=== PATIENT | female | born 1965 | race Caucasian/White ===

== ENCOUNTER 2021-10-02 05:00 | Emergency (ER) | payer OTHER ==
[2021-10-02] MEDS ORDERED: Sodium Chloride 0.9% 1,000 ML IV SCH (05:45)
[2021-10-02] MEDS ORDERED: Ondansetron 4 MG/2 ML SDV IVPUSH ONE (06:27)
[2021-10-02] MEDS ORDERED: cefTRIAXone 2 GM Vial IVPUSH ONE (06:38)
[2021-10-02] MEDS ORDERED: cefTRIAXone 1 GM Vial IVPUSH ONE (06:47)
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
[2021-10-02] MEDS ORDERED: Iopamidol 755 Mg/ML 75 ML Bottle IV ONE (07:06)
--- NOTE | 2021-10-02 09:20 | PCM.SN.2 ---
- Free Text/Narrative Note: Patient was handed to me pending CT abd/pelvis result. See Dr Vega note for details of HPI A/P 1.UTI 2.Acute cystitis 3.Fatty liver See discharge instructions for details of discharge planning Time Documentation
== END 2021-10-02 09:05 | disposition home or self-care (01) ==
LOC: FB.ED 05:00
DX: R82.81 Pyuria (principal); R82.71 Bacteriuria; D75.89 Other specified diseases of blood and blood-forming organs; R79.89 Other specified abnormal findings of blood chemistry; Z87.891 Personal history of nicotine dependence; Z20.822 Contact with and (suspected) exposure to COVID-19
CPT/HCPCS: 36415; 72040; 74178; 80053; 81001; 83690; 85025; 86140; 87086; 87088; 87186; 87635; 96374; 96375; 99284; J0696; J2405; J7030; Q9967; U0002

== ENCOUNTER 2021-10-28 06:13 | Emergency (ER) | payer OTHER ==
[2021-10-28] MEDS ORDERED: Sodium Chloride 0.9% 10 ML Syringe FLUSH PRN (06:27)
[2021-10-28] MEDS: Ondansetron 4 MG/2 ML SDV IVPUSH ONE (06:38)
[2021-10-28] MEDS: Sodium Chloride 0.9% 1,000 ML IV ONE (06:38)
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
[2021-10-28] MEDS: Prochlorperazine 10 MG in Sodium Chloride 0.9% 50 ML IV ONE (07:25)
== END 2021-10-28 08:10 | disposition home or self-care (01) ==
LOC: FB.ED 06:13
DX: K52.9 Noninfective gastroenteritis and colitis, unspecified (principal)
CPT/HCPCS: 36415; 80048; 81003; 85025; 96361; 96365; 96375; 99284-25; J0780; J2405; J7030